=== PATIENT | female | born 1945 | race Caucasian/White ===

== ENCOUNTER 2017-10-16 17:28 | Inpatient (IN) | payer OTHER, MEDICAID, MEDICARE ==
[~2017-10-16] VITALS: Ht 149.9 cm; Wt 72.3 kg
[2017-10-16] VITALS (10 sets, daily range): BP systolic 97–139; BP diastolic 55–81; PULSE 104–150; RESP 18–34; TEMP 98.2–98.3; O2SAT 91–100
[~2017-10-16 17:28] MED LIST: COUM5TAB PO; LASI20TA PO; METO25 PO; PRIN10TA PO; [UNRECOGNIZED DRUG - CODE] PO
--- NOTE | 2017-10-16 17:43 | PD ---
HPI Chief Complaint: Shortness of breath Time Seen by Provider: 17:33 Travel History International Travel<30 days: No Contact w/Intl Traveler<30days: No Traveled to known affect area: No History of Present Illness HPI The patient is a 72-year-old female who presents to the emergency department via EMS for shortness of breath. Patient notes a progressive, increasing history of shortness of breath over the last 2 weeks. The patient does note a productive cough producing yellow to green sputum. The patient has a history of remote tobacco use, quit smoking 40 years ago. The patient does have a history of atrial fibrillation but denies any known history of congestive heart failure, pneumonia, COPD, or pulmonary embolism. The patient does note a previous history of bronchitis. The patient received Solu-Medrol 125 mg intravenously as well as nebulizers by EMS prior to arrival with mild improvement of her symptoms. Patient's oxygen saturation on room air prior to arrival was 89% according to EMS. The patient is not on home oxygen. Patient denies any fever. She denies any associated chest pain, nausea, vomiting, diarrhea, or abdominal pain. Symptoms are moderate. PFSH Past Medical History Arthritis: No Asthma: No Atrial Fibrillation: Yes Autoimmune Disease: No Blood Disorders: No Heart Rhythm Problems: Yes (AFIB) Cancer: No Cardiovascular Problems: Yes High Cholesterol: No Chemotherapy: No Chest Pain: No Congestive Heart Failure: No COPD: Yes Diminished Hearing: No Endocrine: No Gastrointestinal Disorders: Yes GERD: No Genitourinary: No Hepatitis: No Hiatal Hernia: No Hypertension: Yes Immune Disorder: No Musculoskeletal: No Neurologic: No Psychiatric: No Respiratory: Yes Immunizations Current: Yes Myocardial Infarction: No Radiation Therapy: No Sleep Apnea: No Ulcer: No Past Surgical History Abdominal Surgery: No AICD: No Cardiac Surgery: No Ear Surgery: No Endocrine Surgery: No Eye Surgery: No Genitourinary Surgery: No Gynecologic Surgery: Yes Hysterectomy: Yes Joint Replacement: No Oral Surgery: No Pacemaker: No Thoracic Surgery: No Other Surgery: Yes Social History Alcohol Use: No Tobacco Use: No Substance Use: No Allergies-Medications (Allergen,Severity, Reaction): Coded Allergies: Sulfa (Sulfonamide Antibiotics) (Unverified Allergy, Severe, ITCHING, 12/18) cephalexin (Unverified Allergy, Severe, RASH, 12/18/16) codeine (Unverified Allergy, Severe, N/V, 12/18/16) erythromycin base (Unverified Allergy, Severe, ITCHING, 12/18/16) latex (Unverified Allergy, Severe, Swelling, 12/18/16) penicillin G (Unverified Allergy, Severe, UNKNOWN, 12/18/16) diphenhydramine (Unverified Allergy, Intermediate, DEHYDRATION, 12/18/16) Reported Meds & Prescriptions Reported Meds & Active Scripts Active Reported Warfarin 5 Mg Tab 5 Mg PO DAILY Metoprolol Tartrate 75 Mg Tab 75 Mg PO BID Lisinopril 10 Mg Tab 10 Mg PO DAILY Lasix (Furosemide) 20 Mg Tab 20 Mg PO DAILY Diltiazem ER 24 HR 180 Mg Codi 180 Mg PO DAILY Review of Systems Except as stated in HPI: all other systems reviewed are Neg General / Constitutional: No: Fever, Chills HENT: No: Lightheadedness Cardiovascular: No: Chest Pain or Discomfort Respiratory: Positive: Cough, Shortness of Breath, Wheezing Gastrointestinal: No: Nausea, Vomiting, Abdominal Pain Musculoskeletal: No: Edema Neurologic: No: Dizziness Physical Exam Narrative GENERAL: Awake, alert, pleasant 72-year-old female who appears her stated age and is in mild respiratory distress. Slightly disheveled appearance. SKIN: Focused skin assessment warm/dry. HEAD: Atraumatic. Normocephalic. EYES: Pupils equal and round. No scleral icterus. No injection or drainage. ENT: No nasal bleeding or discharge. Mucous membranes pink and moist. NECK: Trachea midline. No JVD. CARDIOVASCULAR: Irregularly irregular, tachycardic with a heart rate in the 140s. RESPIRATORY: Mild tachypnea. Respiratory rate is 24. Prolonged expiratory phase with wheezing noted in the left lung guillory in the right base. Few scattered rhonchi noted. GASTROINTESTINAL: Abdomen soft, non-tender, nondistended. MUSCULOSKELETAL: No obvious deformities. No clubbing. No cyanosis. No edema. NEUROLOGICAL: Awake and alert. No obvious cranial nerve deficits. Motor grossly within normal limits. Normal speech. PSYCHIATRIC: Appropriate mood and affect; insight and judgment normal. Data Data Last Documented VS Vital Signs Date Time Temp Pulse Resp B/P (MAP) Pulse Ox O2 Delivery O2 Flow Rate FiO2 10/16/17 18:01 140 30 124/66 (85) 10/16/17 17:47 91 Nasal Cannula 3.00 10/16/17 17:43 98.3 Orders Orders Complete Blood Count With Diff (10/16/17 17:37) Comprehensive Metabolic Panel (10/16/17 17:37) B-Type Natriuretic Peptide (10/16/17 17:37) Magnesium (Mg) (10/16/17 17:37) Ckmb (Isoenzyme) Profile (10/16/17 17:37) Troponin I (10/16/17 17:37) Blood Culture (10/16/17 17:37) Iv Access Insert/Monitor (10/16/17 17:37) Electrocardiogram (10/16/17 17:37) Ecg Monitoring (10/16/17 17:37) Oximetry (10/16/17 17:37) Oxygen Administration (10/16/17 17:37) Chest, Pa & Lat (10/16/17 17:37) Sodium Chloride 0.9% Flush (Ns Flush) (10/16/17 17:45) Albuterol-Ipratropium Neb (Duoneb Neb) (10/16/17 17:45) Lactic Acid (10/16/17 17:37) Metoprolol Tartrate Inj (Lopressor Inj) (10/16/17 18:00) Metoprolol Tartrate Inj (Lopressor Inj) (10/16/17 18:15) Levofloxacin 750 Mg Premix Inj (Levaquin (10/16/17 19:00) Ns (Bolus) Inj (10/16/17 19:00) Metoprolol Tartrate Inj (Lopressor Inj) (10/16/17 19:00) Digoxin Inj (Lanoxin Inj) (10/16/17 19:00) Labs Laboratory Tests Test 10/16/17 17:38 10/16/17 17:52 White Blood Count 27.4 TH/MM3 Red Blood Count 5.62 MIL/MM3 Hemoglobin 17.2 GM/DL Hematocrit 50.0 % Mean Corpuscular Volume 89.1 FL Mean Corpuscular Hemoglobin 30.6 PG Mean Corpuscular Hemoglobin Concent 34.3 % Red Cell Distribution Width 13.8 % Platelet Count 233 TH/MM3 Mean Platelet Volume 9.2 FL Neutrophils (%) (Auto) 81.0 % Lymphocytes (%) (Auto) 9.8 % Monocytes (%) (Auto) 9.0 % Eosinophils (%) (Auto) 0.0 % Basophils (%) (Auto) 0.2 % Neutrophils # (Auto) 22.2 TH/MM3 Lymphocytes # (Auto) 2.7 TH/MM3 Monocytes # (Auto) 2.5 TH/MM3 Eosinophils # (Auto) 0.0 TH/MM3 Basophils # (Auto) 0.0 TH/MM3 CBC Comment AUTO DIFF Lactic Acid Level 1.6 mmol/L MDM Medical Decision Making Medical Screen Exam Complete: Yes Emergency Medical Condition: Yes Medical Record Reviewed: Yes Interpretation(s) EKG reveals atrial fibrillation with RVR. Nonspecific ST-T wave changes. Differential Diagnosis Differential diagnosis includes A. fib with RVR, bronchitis, pneumonia, pleural effusion, pulmonary edema, congestive heart failure, pulmonary embolism, COPD exacerbation, ACS. Narrative Course IV was established, labs are drawn and sent, and the patient was placed on cardiac telemetry monitoring and continuous pulse oximetry. EKG was ordered and interpreted. Chest x-ray was obtained. The patient was noted to be in atrial fibrillation with RVR, therefore, was administered Lopressor 5 mg intravenously. Lactic acid and blood cultures were sent to lab. The patient continued to be tachycardic despite Lopressor 5 mg intravenously, therefore, the patient was administered a second dose of Lopressor 5 mg intravenously. The patient's white count was elevated at 27, however, hemoglobin and hematocrit are also elevated, most likely secondary to hemoconcentration from dehydration. The patient continued to be in atrial fibrillation with RVR despite 2 doses of Lopressor, therefore, the patient was administered a third dose of Lopressor 5 mg and she is venously with normal saline 500 cc bolus and digoxin 0.5 mg intravenously. The patient was signed out to the oncoming physician at 7 PM. The patient will require admission. The patient was treated for possible community-acquired pneumonia with Levaquin as she is allergic to penicillin and cephalexin. Critical Care Narrative Aggregate critical care time was 40 minutes. Time to perform other separately billable procedures was not included in the critical care time. My time did not include minutes spent treating any other patients simultaneously or on activities that did not directly contribute to the patient's treatment. The services I provided to this patient were to treat and/or prevent clinically significant deterioration that could result in: Anoxia, hypoxia, arrhythmia, cardiomyopathy, ischemic heart disease, . I provided critical care services requiring my management, as noted below: Chart data review, documentation time, medication orders and management, vital sign assessments/reviewing monitor data, ordering and reviewing lab tests, ordering and interpreting/reviewing x-rays and diagnostic studies, care of the patient and discussion of the patient with the admitting physicians. Diagnosis Primary Impression: Atrial fibrillation with RVR Admitting Information Admitting Physician Requests: Admit Condition: Stable Clay King MD Oct 16, 2017 17:43
[2017-10-16] MEDS ORDERED: SODIUM CHLORIDE 0.9% FLUSH 10 ML FLUSH IVF PRN (17:45)
[2017-10-16] MEDS ORDERED: LISI10TA3 PO (18:00)
[2017-10-16] MEDS ORDERED: METOPROLOL TARTRATE 5 MG/5 ML VIAL IV PUSH ONE ×3 (18:00→19:00)
[2017-10-16] MEDS ORDERED: WARF-23 PO (18:00)
[2017-10-16] MEDS ORDERED: METO-426 PO (18:00)
[2017-10-16] MEDS ORDERED: FURO1TAB62 PO (18:00)
[2017-10-16] MEDS ORDERED: DILT0.05 PO (18:00)
[2017-10-16 18:30] LABS: AUTOMATED NEUTROPHIL # 22.2 TH/MM3 (1.8-7.7); BASOPHIL % 0.2 % (0.0-2.0); HEMOGLOBIN 17.2 GM/DL (11.6-15.3); LYMPH % 9.8 % (9.0-44.0); LYMPHOCYTE # 2.7 TH/MM3 (1.0-4.8); MEAN CELL VOLUME 89.1 FL (80.0-100.0); MEAN CORPUSCULAR HEMOGLOBIN 30.6 PG (27.0-34.0); MEAN CORPUSCULAR HGB CONC 34.3 % (32.0-36.0); MEAN PLATELET VOLUME 9.2 FL (7.0-11.0); MONOCYTE # 2.5 TH/MM3 (0-0.9); PLATELET COUNT 233 TH/MM3 (150-450); RED BLOOD COUNT 5.62 MIL/MM3 (4.00-5.30); RED CELL DISTRIBUTION WIDTH 13.8 % (11.6-17.2); WHITE BLOOD COUNT 27.4 TH/MM3 (4.0-11.0)
--- NOTE | 2017-10-16 18:51 | RADRPT ---
EXAM DATE: 10/16/2017 6:35 PM EDT AGE/SEX: 72 years / Female INDICATIONS: Cough, congestion, and shortness of breath. CLINICAL DATA: This is the patient's initial encounter. Patient reports that signs and symptoms have been present for 2 weeks and indicates a pain score of 0/10. MEDICAL/SURGICAL HISTORY: None. None. COMPARISON: No prior exams available for comparison. FINDINGS: Mild bilateral perihilar and basilar interstitial infiltrates are present. There appears to be slight blunting of the posterior sulcus which may indicate minimal effusion. Cardiac contours are satisfact ory. Thoracic skeleton is grossly intact. CONCLUSION: Bilateral infiltrates. Electronically signed by: Rafa Jordan MD 10/16/2017 6:50 PM EDT
[2017-10-16 18:52] LABS: ALBUMIN 3.5 GM/DL (3.4-5.0); AST (GOT) 25 U/L (15-37); BICARBONATE 25.4 MEQ/L (21.0-32.0); BLOOD UREA NITROGEN 13 MG/DL (7-18); CALCIUM 9.2 MG/DL (8.5-10.1); CHLORIDE 99 MEQ/L (98-107); CREATININE 0.73 MG/DL (0.50-1.00); GLOMERULAR FILTRATION RATE 79 ML/MIN (>89); GLUCOSE,RANDOM 123 MG/DL (74-106); SODIUM (NA) 136 MEQ/L (136-145)
[2017-10-16 18:53] LABS: ALT (GPT) 27 U/L (10-53)
[2017-10-16 18:57] LABS: ALKALINE PHOSPHATASE 76 U/L (45-117); TOTAL BILIRUBIN ADULT 0.7 MG/DL (0.2-1.0); TOTAL PROTEIN 7.8 GM/DL (6.4-8.2); TROPONIN I LESS THAN 0.02 NG/ML (0.02-0.05)
[2017-10-16] MEDS ORDERED: LEVOFLOXACIN 750 MG PREMIX INJ 150 ML IV ONE (19:00)
[2017-10-16] MEDS ORDERED: SODIUM CHLORID 0.9% 500 ML INJ 500 ML IV ONE ×2 (19:00→19:45)
[2017-10-16] MEDS ORDERED: DIGOXIN 0.5 MG/2 ML VIAL IV PUSH ONE (19:00)
[2017-10-16] MEDS ORDERED: ASPIRIN 81 MG CHEW TAB CHEW ONE (19:00)
--- NOTE | 2017-10-16 19:11 | PD ---
Physical Exam Date Seen by Provider: Oct 16, 2017 Time Seen by Provider: 19:09 Narrative Accepted in transfer of care from Dr. King Data Data Last Documented VS Vital Signs Date Time Temp Pulse Resp B/P (MAP) Pulse Ox O2 Delivery O2 Flow Rate FiO2 10/16/17 19:23 137 22 123/55 (77) 92 Nasal Cannula 3.00 10/16/17 17:43 98.3 Orders Orders Complete Blood Count With Diff (10/16/17 17:37) Comprehensive Metabolic Panel (10/16/17 17:37) B-Type Natriuretic Peptide (10/16/17 17:37) Magnesium (Mg) (10/16/17 17:37) Ckmb (Isoenzyme) Profile (10/16/17 17:37) Troponin I (10/16/17 17:37) Blood Culture (10/16/17 17:37) Iv Access Insert/Monitor (10/16/17 17:37) Electrocardiogram (10/16/17 17:37) Ecg Monitoring (10/16/17 17:37) Oximetry (10/16/17 17:37) Oxygen Administration (10/16/17 17:37) Chest, Pa & Lat (10/16/17 17:37) Sodium Chloride 0.9% Flush (Ns Flush) (10/16/17 17:45) Albuterol-Ipratropium Neb (Duoneb Neb) (10/16/17 17:45) Lactic Acid (10/16/17 17:37) Metoprolol Tartrate Inj (Lopressor Inj) (10/16/17 18:00) Metoprolol Tartrate Inj (Lopressor Inj) (10/16/17 18:15) Levofloxacin 750 Mg Premix Inj (Levaquin (10/16/17 19:00) Sodium Chlorid 0.9% 500 Ml Inj (Ns 500 M (10/16/17 19:00) Metoprolol Tartrate Inj (Lopressor Inj) (10/16/17 19:00) Digoxin Inj (Lanoxin Inj) (10/16/17 19:00) Aspirin Chew (Aspirin Chew) (10/16/17 19:00) Sodium Chlorid 0.9% 500 Ml Inj (Ns 500 M (10/16/17 19:45) Admit Order (Ed Use Only) (10/16/17 ) [employer] / Telemetry [id number] (10/16/17 19:40) Activity Bed Rest (10/16/17 19:40) Notify Dr: Other (10/16/17 19:40) Labs Laboratory Tests Test 10/16/17 17:38 10/16/17 17:52 White Blood Count 27.4 TH/MM3 Red Blood Count 5.62 MIL/MM3 Hemoglobin 17.2 GM/DL Hematocrit 50.0 % Mean Corpuscular Volume 89.1 FL Mean Corpuscular Hemoglobin 30.6 PG Mean Corpuscular Hemoglobin Concent 34.3 % Red Cell Distribution Width 13.8 % Platelet Count 233 TH/MM3 Mean Platelet Volume 9.2 FL Neutrophils (%) (Auto) 81.0 % Lymphocytes (%) (Auto) 9.8 % Monocytes (%) (Auto) 9.0 % Eosinophils (%) (Auto) 0.0 % Basophils (%) (Auto) 0.2 % Neutrophils # (Auto) 22.2 TH/MM3 Lymphocytes # (Auto) 2.7 TH/MM3 Monocytes # (Auto) 2.5 TH/MM3 Eosinophils # (Auto) 0.0 TH/MM3 Basophils # (Auto) 0.0 TH/MM3 CBC Comment AUTO DIFF Differential Comment AUTO DIFF CONFIRMED Platelet Estimate NORMAL Platelet Morphology Comment NORMAL Red Cell Morphology Comment NORMAL Blood Urea Nitrogen 13 MG/DL Creatinine 0.73 MG/DL Random Glucose 123 MG/DL Total Protein 7.8 GM/DL Albumin 3.5 GM/DL Calcium Level 9.2 MG/DL Magnesium Level 2.0 MG/DL Alkaline Phosphatase 76 U/L Aspartate Amino Transf (AST/SGOT) 25 U/L Alanine Aminotransferase (ALT/SGPT) 27 U/L Total Bilirubin 0.7 MG/DL Sodium Level 136 MEQ/L Potassium Level 3.6 MEQ/L Chloride Level 99 MEQ/L Carbon Dioxide Level 25.4 MEQ/L Anion Gap 12 MEQ/L Estimat Glomerular Filtration Rate 79 ML/MIN Total Creatine Kinase 42 U/L Troponin I LESS THAN 0.02 NG/ML B-Type Natriuretic Peptide 94 PG/ML Lactic Acid Level 1.6 mmol/L [facility] Medical Record Reviewed: Yes Supervised Visit with ABBIE: No Interpretation(s) EKG: Atrial fibrillation with rapid ventricular response rate [address] elevation Last Impressions Chest X-Ray 10/16/17 1737 Signed Impressions: CONCLUSION: Bilateral infiltrates. CBC & BMP Diagram 10/16/17 17:38 Total Protein 7.8, Albumin 3.5, Calcium Level 9.2, Magnesium Level 2.0, Alkaline Phosphatase 76, Aspartate Amino Transf (AST/SGOT) 25, Alanine Aminotransferase (ALT/SGPT) 27, Total Bilirubin 0.7 Vital Signs Date Time Temp Pulse Resp B/P (MAP) Pulse Ox O2 Delivery O2 Flow Rate FiO2 10/16/17 18:01 140 30 124/66 (85) 10/16/17 17:47 151 91 Nasal Cannula 3.00 10/16/17 17:47 92 Nasal Cannula 3.00 10/16/17 17:47 91 3.00 10/16/17 17:43 98.3 150 34 139/81 (100) 91 CK: 42, not elevated; troponin I: Less than 002, not elevated; BNP 94, not elevated Differential Diagnosis Accepted in transfer of care from Dr. King; please refer to his dictation Narrative Course Accepted in transfer of care from Dr. King; follow up on labs and admission Labs resulted including cardiac enzymes found to be in normal range and BNP is not elevated; leukocytosis with hemoconcentration elevated hemoglobin of 17.1 EKG is A. fib with RVR; chest x-ray shows bilateral pulmonary infiltrates; patient is already received updraft treatments metoprolol Solu-Medrol Levaquin and a 500 cc bolus of normal saline; patient's case discussed with on-call medicine request additional fluid bolus and will determine if they will start esmolol or amiodarone infusion for management of her A. fib with RVR. Patient is aware of plan to admit and is agreeable with this plan. Sepsis Criteria SIRS Criteria (2 or more): Heart rate over 90, WBC > 44549, < 4000 or > 10% bands Sepsis Criteria (SIRS+source): Infect source susp/known (lung) Physician Communication Physician Communication call placed to [facility] --discussed with Dr Hernandez --icu Diagnosis Primary Impression: Atrial fibrillation with RVR Additional Impressions: Pneumonia Sepsis Admitting Information Admitting Physician Requests: Admit Condition: Stable Gabriela Ortega MD Oct 16, 2017 19:11
[2017-10-16] MEDS ORDERED: PRAD150C PO (19:27)
[2017-10-16] MEDS: RESP: ALBUTEROL 2.5 MG/IPRATROPIUM 0.5 MG NEB (SCH) INH ×2 (19:51→21:06)
[2017-10-16] MEDS ORDERED: RESP: ALBUTEROL 2.5 MG/IPRATROPIUM 0.5 MG NEB (PRN) INH (20:45)
[2017-10-16] MEDS ORDERED: SODIUM CHLORIDE 0.9% FLUSH 10 ML FLUSH IV FLUSH PRN (20:45)
[2017-10-16] MEDS ORDERED: ACETAMINOPHEN 325 MG TAB PO PRN (20:45)
--- NOTE | 2017-10-16 20:46 | HHI.HP ---
[facility] Service [facility] Primary Care Physician Unknown Admission Diagnosis AFRVR; pneumonia w/ hypoxia; sepsis Diagnoses: Travel History International Travel<30 Days: No Contact w/Intl Traveler <30 Da: No Traveled to Known Affected Are: No History of Present Illness 72-year-old female with past medical history significant for atrial fibrillation , anticoagulated on Pradaxa, presents the emergency department for evaluation of shortness of breath. The patient reports a 2 week history of progressively worsening shortness of breath. She also endorses a week of heart palpitations. She states she has had a cough productive of yellow sputum. Denies any chest pain but endorses fevers/chills. The patient reports that she was recently out of her metoprolol for approximately 1 week, finally getting it refilled 2 days ago. No abdominal pain. No nausea/vomiting/diarrhea. No lateralizing signs/ symptoms. Review of Systems Except as stated in HPI: all other systems reviewed are Neg Past Family Social History Past Medical History Atrial fibrillation, anticoagulated on Pradaxa Hypertension Past Surgical History Left leg surgery Appendectomy Cholecystectomy Hysterectomy Reported Medications Reported Meds & Active Scripts Active Reported Pradaxa (Dabigatran) 150 Mg Cap 150 Mg PO BID Metoprolol Tartrate 75 Mg Tab 75 Mg PO BID Lisinopril 10 Mg Tab 10 Mg PO DAILY Diltiazem ER 24 HR 180 Mg Codi 180 Mg PO DAILY Allergies: Coded Allergies: Sulfa (Sulfonamide Antibiotics) (Unverified Allergy, Severe, ITCHING, 12/18) cephalexin (Unverified Allergy, Severe, RASH, 12/18/16) codeine (Unverified Allergy, Severe, N/V, 12/18/16) erythromycin base (Unverified Allergy, Severe, ITCHING, 12/18/16) latex (Unverified Allergy, Severe, Swelling, 12/18/16) penicillin G (Unverified Allergy, Severe, UNKNOWN, 12/18/16) diphenhydramine (Unverified Allergy, Intermediate, DEHYDRATION, 12/18/16) Family History Negative for CAD/DM Social History Remote history of tobacco abuse. Negative for alcohol and illicit drugs. Physical Exam Vital Signs Vital Signs Date Time Temp Pulse Resp B/P (MAP) Pulse Ox O2 Delivery O2 Flow Rate FiO2 10/16/17 19:48 98 Nasal Cannula 3.00 10/16/17 19:42 118 10/16/17 19:23 137 22 123/55 (77) 92 Nasal Cannula 3.00 10/16/17 18:01 140 30 124/66 (85) 10/16/17 17:47 151 91 Nasal Cannula 3.00 10/16/17 17:47 92 Nasal Cannula 3.00 10/16/17 17:47 91 3.00 10/16/17 17:43 98.3 150 34 139/81 (100) 91 Physical Exam GENERAL: female sitting up in bed SKIN: No rashes, ecchymoses or lesions. Cool and dry. HEAD: Atraumatic. Normocephalic. No temporal or scalp tenderness. EYES: Pupils equal round and reactive. Extraocular motions intact. No scleral icterus. No injection or drainage. ENT: Nose without bleeding, purulent drainage or septal hematoma. Throat without erythema, tonsillar hypertrophy or exudate. Uvula midline. Airway patent. NECK: Trachea midline. No JVD or lymphadenopathy. Supple, nontender, no meningeal signs. CARDIOVASCULAR: Tachycardic. Irregularly irregular rhythm without murmurs, gallops, or rubs. RESPIRATORY: Clear to auscultation. Breath sounds equal bilaterally. No wheezes , rales, or rhonchi. GASTROINTESTINAL: Abdomen soft, non-tender, nondistended. No hepato-splenomegaly , or palpable masses. No guarding. MUSCULOSKELETAL: Extremities without clubbing, cyanosis, or edema. No joint tenderness, effusion, or edema noted. No calf tenderness. NEUROLOGICAL: Awake and alert. Cranial nerves II through XII intact. Motor and sensory grossly within normal limits. Normal speech. Laboratory Laboratory Tests Test 10/16/17 17:38 10/16/17 17:52 White Blood Count 27.4 Red Blood Count 5.62 Hemoglobin 17.2 Hematocrit 50.0 Mean Corpuscular Volume 89.1 Mean Corpuscular Hemoglobin 30.6 Mean Corpuscular Hemoglobin Concent 34.3 Red Cell Distribution Width 13.8 Platelet Count 233 Mean Platelet Volume 9.2 Neutrophils (%) (Auto) 81.0 Lymphocytes (%) (Auto) 9.8 Monocytes (%) (Auto) 9.0 Eosinophils (%) (Auto) 0.0 Basophils (%) (Auto) 0.2 Neutrophils # (Auto) 22.2 Lymphocytes # (Auto) 2.7 Monocytes # (Auto) 2.5 Eosinophils # (Auto) 0.0 Basophils # (Auto) 0.0 CBC Comment AUTO DIFF Differential Comment AUTO DIFF CONFIRMED Platelet Estimate NORMAL Platelet Morphology Comment NORMAL Red Cell Morphology Comment NORMAL Blood Urea Nitrogen 13 Creatinine 0.73 Random Glucose 123 Total Protein 7.8 Albumin 3.5 Calcium Level 9.2 Magnesium Level 2.0 Alkaline Phosphatase 76 Aspartate Amino Transf (AST/SGOT) 25 Alanine Aminotransferase (ALT/SGPT) 27 Total Bilirubin 0.7 Sodium Level 136 Potassium Level 3.6 Chloride Level 99 Carbon Dioxide Level 25.4 Anion Gap 12 Estimat Glomerular Filtration Rate 79 Total Creatine Kinase 42 Troponin I LESS THAN 0.02 B-Type Natriuretic Peptide 94 Lactic Acid Level 1.6 Date/Time Source Procedure Growth Status 10/16/17 17:50 Blood Peripheral Aerobic Blood Culture Pending Received 10/16/17 17:50 Blood Peripheral Anaerobic Blood Culture Pending Received Result Diagram: 10/16/17 1738 10/16/17 1738 Caprini VTE Risk Assessment Caprini VTE Risk Assessment: Mod/High Risk (score >= 2) Caprini Risk Assessment Model Point Value = 1 Point Value = 2 Point Value = 3 Point Value = 5 Age 41-60 Minor surgery BMI > 25 kg/m2 Swollen legs Varicose veins or History of unexplained or recurrent spontaneous Oral contraceptives or hormone replacement Sepsis (< 1 month) Serious lung disease, including pneumonia (< 1 month) Abnormal pulmonary function Acute myocardial infarction Congestive heart failure (< 1 month) History of inflammatory bowel disease Medical patient at bed rest Age 61-74 Arthroscopic surgery Major open surgery (> 45 min) Laparoscopic surgery (> 45 min) Malignancy Confined to bed (> 72 hours) Immobilizing plaster cast Central venous access Age >= 75 History of VTE Family history of VTE Factor V Leiden Prothrombin [id number] Lupus anticoagulant Anticardiolipin antibodies Elevated serum homocysteine Heparin-induced thrombocytopenia Other congenital or acquired thrombophilia Stroke (< 1 month) Elective arthroplasty Hip, pelvis, or leg fracture Acute spinal cord injury (< 1 month) Prophylaxis Regimen Total Risk Factor Score Risk Level Prophylaxis Regimen 0-1 Low Early ambulation 2 Moderate Order ONE of the following: *Sequential Compression Device (SCD) *Heparin 5000 units SQ BID 3-4 Higher Order ONE of the following medications: *Heparin 5000 units SQ TID *Enoxaparin/Lovenox 40 mg SQ daily (WT < 150 kg, CrCl > 30 mL/min) *Enoxaparin/Lovenox 30 mg SQ daily (WT < 150 kg, CrCl > 10-29 mL/min) *Enoxaparin/Lovenox 30 mg SQ BID (WT < 150 kg, CrCl > 30 mL/min) AND/OR *Sequential Compression Device (SCD) 5 or more Highest Order ONE of the following medications: *Heparin 5000 units SQ TID (Preferred with Epidurals) *Enoxaparin/Lovenox 40 mg SQ daily (WT < 150 kg, CrCl > 30 mL/min) *Enoxaparin/Lovenox 30 mg SQ daily (WT < 150 kg, CrCl > 10-29 mL/min) *Enoxaparin/Lovenox 30 mg SQ BID (WT < 150 kg, CrCl > 30 mL/min) AND *Sequential Compression Device (SCD) Assessment and Plan Assessment and Plan Assessment/plan: 1. Atrial fibrillation with rapid ventricular response EKG significant for A. fib with RVR, no ST segment elevations, personally reviewed Patient with history of atrial fibrillation Remains tachycardic despite IV metoprolol Esmolol drip Wean as tolerated Continue home medications including anticoagulation with Pradaxa 2. Pneumonia Chest x-ray significant for bilateral infiltrates, personally reviewed Patient with leukocytosis although is also hemoconcentrated Levaquin 3. Hypertension Continue home lisinopril FEN Heart healthy diet Electrolytes: Monitor and replete as needed Pradaxa NS at 100 cc/hour Physician Certification 2 Midnight Certification Type: Admission for Inpatient Services Order for Inpatient Services The services are ordered in accordance with Medicare regulations or non- Medicare payer requirements, as applicable. In the case of services not specified as inpatient-only, they are appropriately provided as inpatient services in accordance with the 2-midnight benchmark. Estimated LOS (days): 2 2 days is the estimated time the patient will need to remain in the hospital, assuming treatment plan goals are met and no additional complications. Post-Hospital Plan: Not yet determined Lisa Hernandez MD Oct 16, 2017 20:46
[2017-10-16] MEDS ORDERED: AMIODARONE INJ 450 MG in DEXTROSE 5% IN WATE(EXCEL) INJ 241 ML IV PRN ×2 (20:51)
[2017-10-16] MEDS: ESMOLOL DRIP INJ PREMIX 250 ML IV PRN (21:19)
[2017-10-16] MEDS: SODIUM CHLOR 0.9% 1000 ML INJ 1,000 ML IV SCH (21:19)
[2017-10-16] MEDS: SODIUM CHLORIDE 0.9% FLUSH 10 ML FLUSH IV FLUSH SCH (21:19)
[2017-10-16] MEDS: DABIGATRAN ETEXILATE 150 MG CAP PO SCH (21:51)
[2017-10-16] MEDS ORDERED: CHLORHEXIDINE GLUCONATE 2 % 1 PACK (2 CLOTHS)(extra cloths) TOPICAL PRN (23:15)
[2017-10-17] VITALS (25 sets, daily range): BP systolic 85–103; BP diastolic 51–63; PULSE 86–145; RESP 19–30; TEMP 97.4–98.7; O2SAT 96–100
[2017-10-17] MEDS: ESMOLOL DRIP INJ PREMIX 250 ML IV PRN (02:33)
[2017-10-17] MEDS: CHLORHEXIDINE GLUCONATE 2 % 1 PACK (2 CLOTHS)(taper/protocol) TOPICAL SCH (04:00)
[2017-10-17] MEDS: RESP: ALBUTEROL 2.5 MG/IPRATROPIUM 0.5 MG NEB (SCH) INH ×4 (04:03→21:30)
[2017-10-17 04:05] LABS: AUTOMATED NEUTROPHIL # 21.6 TH/MM3 (1.8-7.7); BASOPHIL % 0.1 % (0.0-2.0); HEMATOCRIT 41.9 % (35.0-46.0); LYMPHOCYTE # 1.2 TH/MM3 (1.0-4.8); MEAN CELL VOLUME 90.1 FL (80.0-100.0); MEAN CORPUSCULAR HEMOGLOBIN 30.1 PG (27.0-34.0); MEAN CORPUSCULAR HGB CONC 33.4 % (32.0-36.0); MONO % 4.6 % (0.0-8.0); MONOCYTE # 1.1 TH/MM3 (0-0.9); NEUT % 90.3 % (16.0-70.0); PLATELET COUNT 188 TH/MM3 (150-450); RED BLOOD COUNT 4.65 MIL/MM3 (4.00-5.30); RED CELL DISTRIBUTION WIDTH 13.1 % (11.6-17.2); WHITE BLOOD COUNT 23.9 TH/MM3 (4.0-11.0)
[2017-10-17 04:27] LABS: BICARBONATE 23.8 MEQ/L (21.0-32.0); CALCIUM 8.4 MG/DL (8.5-10.1); CREATININE 0.71 MG/DL (0.50-1.00)
[2017-10-17] MEDS: SODIUM CHLOR 0.9% 1000 ML INJ 1,000 ML IV SCH ×2 (04:35→14:52)
[2017-10-17] MEDS: DABIGATRAN ETEXILATE 150 MG CAP PO SCH ×2 (08:41→19:54)
[2017-10-17] MEDS: DILTIAZEM-CD 180 MG CAP ER PO SCH (08:41)
[2017-10-17] MEDS: SODIUM CHLORIDE 0.9% FLUSH 10 ML FLUSH IV FLUSH SCH ×2 (08:41→19:53)
[2017-10-17] MEDS: LISINOPRIL 10 MG TAB PO SCH (09:00)
[2017-10-17] MEDS: METOPROLOL TARTRATE 25 MG TAB PO SCH ×2 (09:00→19:53)
--- NOTE | 2017-10-17 10:49 | HHI.PR ---
Subjective Remarks Some signs of improvement the patient's tachycardia is not yet resolved. She has no complaints of chest pain. Occasional complaints of shortness of breath. No dizziness. Objective Vital Signs Date Time Temp Pulse Resp B/P (MAP) Pulse Ox O2 Delivery O2 Flow Rate FiO2 10/17/17 10:41 128 104/54 10/17/17 10:00 113 10/17/17 09:16 128 104/54 10/17/17 09:00 126 10/17/17 08:31 99 Nasal Cannula 2.00 10/17/17 08:30 99 Nasal Cannula 4.00 10/17/17 08:00 91 10/17/17 07:00 98.6 96 25 96/62 (73) 96 10/17/17 07:00 96 10/17/17 06:00 88 10/17/17 04:00 94 10/17/17 03:00 98.7 93 19 101/63 (76) 100 10/17/17 02:33 97 96/59 10/17/17 02:10 97 95/61 10/17/17 02:00 90 10/17/17 00:00 108 10/16/17 23:37 98.2 112 20 97/65 (76) 100 10/16/17 23:00 104 10/16/17 22:44 10/16/17 21:42 130 18 122/75 (91) 97 Nasal Cannula 3.00 10/16/17 21:19 127 112/53 10/16/17 20:52 127 20 107/60 (76) 97 Nasal Cannula 3.00 10/16/17 19:48 98 Nasal Cannula 3.00 10/16/17 19:42 118 10/16/17 19:23 137 22 123/55 (77) 92 Nasal Cannula 3.00 10/16/17 18:01 140 30 124/66 (85) 10/16/17 17:47 151 91 Nasal Cannula 3.00 10/16/17 17:47 92 Nasal Cannula 3.00 10/16/17 17:47 91 3.00 10/16/17 17:43 98.3 150 34 139/81 (100) 91 I/O 10/16/17 10/16/17 10/16/17 10/17/17 10/17/17 10/17/17 07:00 15:00 23:00 07:00 15:00 23:00 Intake Total 1270 ml 1500 ml Output Total 400 ml Balance 1270 ml 1100 ml Intake Oral 120 ml 250 ml IV Total 1150 ml 1250 ml Output Urine Total 400 ml # Bowel Movements 0 Result Diagram: 10/17/171 10/17/17 023 Objective Remarks GENERAL: NAD, A&Ox3 HEAD: Normocephalic. NECK: Supple, trachea midline. No lymphadenopathy. EYES: No scleral icterus. No injection or drainage. CARDIOVASCULAR: Irregularly irregular with tachycardia without murmurs, gallops , or rubs. RESPIRATORY: Breath sounds equal bilaterally. No accessory muscle use. GASTROINTESTINAL: Abdomen soft, non-tender, nondistended. MUSCULOSKELETAL: No cyanosis, or edema. SKIN: Warm and dry. NEURO: No focal neurological deficitis. A/P Problem List: (1) Atrial fibrillation with RVR ICD Code: I48.91 - Unspecified atrial fibrillation Status: Acute (2) Pneumonia ICD Code: J18.9 - Pneumonia, unspecified organism Status: Acute (3) Sepsis ICD Code: A41.9 - Sepsis, unspecified organism Status: Acute Assessment and Plan 72-year-old female admitted secondary to A. fib RVR with pneumonia and sepsis Atrial fibrillation with rapid ventricular response History of atrial fibrillation Continue esmolol drip Continue Pradaxa Treat pneumonia as this is likely an etiology for the onset Community-acquired pneumonia Continue Levaquin Follow clinically Hypertension Continue baseline treatment Follow blood pressures Adjust treatments as needed Continue lisinopril DVT prophylaxis Pradaxa Pepito Alvarado MD Oct 17, 2017 10:49
--- NOTE | 2017-10-17 17:13 | MB ---
cc: Rasta Cai DO DATE: 10/17/2017 REASON FOR CONSULTATION: Atrial fibrillation with rapid ventricular response. HISTORY OF PRESENT ILLNESS: Karen Cavazos is a pleasant 72-year-old female who presented to [facility] Emergency Room on 10/16/2017 due to shortness of breath. She states that she has been getting significantly short of breath over the past 2 weeks. Over the past week, she has noticed heart palpitations with her heart racing and somewhat irregular. She denies any chest pains. She has had productive sputum, mostly yellow to brown in nature. She states that she has had maybe some subjective fevers, although she is unsure. During the episode, she had run out of metoprolol for a week and finally got it refilled about 2 days ago. She was admitted to the hospital with pneumonia and was found to have atrial fibrillation with rapid ventricular response. Since that time, she was started on an esmolol drip, but her blood pressure has been somewhat on the low side and so esmolol drip has been stopped and her metoprolol has been held. She has received her Cardizem this morning. PAST MEDICAL HISTORY: 1. Atrial fibrillation, anticoagulated on Pradaxa. 2. Hypertension. PAST SURGICAL HISTORY: 1. Left leg surgery. 2. Appendectomy. 3. Cholecystectomy. 4. Hysterectomy. ALLERGIES: 1. SULFA. 2. CEPHALEXIN. 3. CODEINE. 4. DIPHENHYDRAMINE. 5. ERYTHROMYCIN BASE. 6. LATEX. 7. PENICILLIN. MEDICATIONS: 1. Pradaxa 150 mg b.i.d. 2. Metoprolol tartrate 75 mg b.i.d. 3. Cardizem 180 mg daily. 4. Lisinopril 10 mg daily. FAMILY HISTORY: Denies premature coronary artery disease or sudden cardiac within the family. SOCIAL HISTORY: She does have a history of tobacco abuse, but quit 40 years ago. Denies alcohol or drug abuse. REVIEW OF SYSTEMS: Fourteen systems were reviewed including osteopathic. Pertinent positives and negatives above, otherwise negative. PHYSICAL EXAMINATION: VITAL SIGNS: Temperature 97.5, heart rate 88, blood pressure 85/51 with a repeat of 90/60, respirations 25, pulse oximetry 99 percent on 2 liters. GENERAL: The patient appears well, in no acute distress, alert, awake and oriented x 3. HEENT: Extraocular muscles intact. Mucous membranes moist. NECK: Supple. No JVD at 45 degrees. No carotid bruits heard bilaterally. Carotid upstroke is brisk in nature. HEART: Irregularly irregular. Positive first and second heart sounds with a I/ holosystolic murmur noted at the apex. LUNGS: Have bilateral rhonchi scattered throughout. ABDOMEN: Soft, nontender, nondistended. No organomegaly noted. EXTREMITIES: Show trace edema bilaterally. NEUROLOGIC: No focal deficits. SKIN: Warm, dry and intact. OSTEOPATHIC: No kyphoscoliosis, lordosis or paraspinal tender points. LABORATORY DATA: Hemoglobin 14.0, hematocrit 41.9, platelets 188. Potassium 3.6, BUN 13, creatinine 0.71. Lactic acid 1.6. Troponin less than 0.02. BNP 94. Electrocardiogram (10/16/2017 at 1749): Atrial fibrillation with rapid ventricular response, incomplete right bundle branch block, nonspecific ST-T wave changes. IMPRESSIONS: 1. Community-acquired pneumonia. 2. Atrial fibrillation with rapid ventricular response. 3. Hypertension. 4. Remote tobacco history. 5. Mild hypotension. RECOMMENDATIONS: 1. Ms. Cavazos presented with shortness of breath and pneumonia-like symptoms. This will be treated by the primary team. 2. She also presented with atrial fibrillation with rapid ventricular response, and this is most likely potentiated by her pneumonia, as well as being out of her metoprolol tartrate. 3. Her heart rate is currently controlled and with her low blood pressure, I am unable to add or increase any of her medications. For now, we will continue to follow her blood pressure and if unable to give further medications and her heart rate increases, I would place her back on the esmolol drip or she may need digoxin. 4. We will check a 2-D echo to look at her overall left ventricular function, cardiac structure and possible valvulopathies. 5. She will continue on Pradaxa for anticoagulation due to her CHADS-VASc score of 3. 6. Further recommendations will be made based on the hospital course. Thank you for allowing me to see Karen Cavazos. If there are any questions, please do not hesitate to call. DO JIMBO CalderonP/NICOLETTE , 04:46 PM , 05:11 PM
--- NOTE | 2017-10-17 19:16 | EKG ---
Date Performed: 10/16/2017 Time Performed: 17:49:42 PTAGE: 72 years EKG: ATRIAL FIBRILLATION WITH RAPID VENTRICULAR RESPONSE INDETERMINATE AXIS POSSIBLE RIGHT VENTR ICULAR CONDUCTION DELAY NONSPECIFIC ST & T-WAVE ABNORMALITY ABNORMAL RHYTHM ECG when compared to prio r EKG, patient is now in atrial fibrillation with rapid ventricular rate. PREVIOUS TRACING :05/01/2009 @17.04 DOCTOR: Nessa Woo Interpretating Date/Time 10/17/2017 19:14:52
[2017-10-17] MEDS: LEVOFLOXACIN 750 MG PREMIX INJ 150 ML IV SCH (19:52)
[2017-10-17] MEDS ORDERED: METOPROLOL TARTRATE 5 MG/5 ML VIAL IV PUSH ONE (23:30)
[2017-10-18] VITALS (34 sets, daily range): BP systolic 97–129; BP diastolic 60–85; PULSE 72–116; RESP 16–28; TEMP 97.7–98.7; O2SAT 95–99
[2017-10-18] MEDS: SODIUM CHLOR 0.9% 1000 ML INJ 1,000 ML IV SCH ×2 (00:27→22:43)
[2017-10-18] MEDS: RESP: ALBUTEROL 2.5 MG/IPRATROPIUM 0.5 MG NEB (SCH) INH ×3 (03:42→19:57)
[2017-10-18] MEDS: CHLORHEXIDINE GLUCONATE 2 % 1 PACK (2 CLOTHS)(taper/protocol) TOPICAL SCH (04:00)
[2017-10-18] MEDS: METOPROLOL TARTRATE 25 MG TAB PO SCH ×2 (07:03→19:41)
[2017-10-18] MEDS: DABIGATRAN ETEXILATE 150 MG CAP PO SCH ×2 (09:00→21:00)
[2017-10-18] MEDS: DILTIAZEM-CD 180 MG CAP ER PO SCH (09:59)
[2017-10-18] MEDS: SODIUM CHLORIDE 0.9% FLUSH 10 ML FLUSH IV FLUSH SCH ×2 (09:59→19:41)
[2017-10-18] MEDS: LISINOPRIL 10 MG TAB PO SCH (09:59)
--- NOTE | 2017-10-18 10:16 | HHI.PR ---
Subjective Remarks Rate control is improving. Patient has shown stability and would be stable for transfer out of ICU today. No new complaints from the patient. She says that her shortness of breath is improving. Objective Vital Signs Date Time Temp Pulse Resp B/P (MAP) Pulse Ox O2 Delivery O2 Flow Rate FiO2 10/18/17 09:31 98 Nasal Cannula 2.00 10/18/17 07:00 97.7 91 16 129/60 (83) 99 10/18/17 07:00 91 10/18/17 06:00 91 10/18/17 06:00 91 10/18/17 05:30 90 10/18/17 05:30 90 10/18/17 05:00 98 10/18/17 05:00 98 10/18/17 04:30 94 10/18/17 04:00 92 10/18/17 04:00 92 10/18/17 03:30 81 10/18/17 03:00 98.7 82 19 97/62 (74) 99 10/18/17 03:00 82 10/18/17 03:00 82 10/18/17 02:31 78 10/18/17 02:01 86 10/18/17 02:00 84 10/18/17 01:30 90 10/18/17 01:07 88 10/18/17 01:01 91 10/18/17 01:00 92 10/18/17 00:30 93 10/18/17 00:00 92 10/17/17 23:30 123 10/17/17 23:00 130 10/17/17 23:00 130 10/17/17 23:00 98.5 130 24 103/56 (72) 97 10/17/17 22:30 141 10/17/17 22:01 145 10/17/17 22:00 139 10/17/17 21:31 96 Nasal Cannula 2.00 10/17/17 20:00 110 10/17/17 19:00 98.0 110 25 101/54 (70) 98 10/17/17 18:00 113 10/17/17 16:00 86 10/17/17 15:00 88 10/17/17 15:00 97.5 88 30 85/51 (62) 99 10/17/17 14:00 93 10/17/17 12:00 106 10/17/17 11:00 97.4 102 19 98/54 (69) 100 10/17/17 10:41 128 104/54 I/O 10/17/17 10/17/17 10/17/17 10/18/17 10/18/17 10/18/17 07:00 15:00 23:00 07:00 15:00 23:00 Intake Total 1500 ml 1000 ml 360 ml Output Total 400 ml 450 ml 1600 ml Balance 1100 ml 1000 ml -90 ml -1600 ml Intake Oral 250 ml 360 ml IV Total 1250 ml 1000 ml Output Urine Total 400 ml 450 ml 1600 ml # Bowel Movements 0 0 Result Diagram: 10/17/17 0231 10/17/17 0231 Objective Remarks GENERAL: NAD, A&Ox3 HEAD: Normocephalic. NECK: Supple, trachea midline. No lymphadenopathy. EYES: No scleral icterus. No injection or drainage. CARDIOVASCULAR: Irregularly irregular with tachycardia without murmurs, gallops , or rubs. RESPIRATORY: Breath sounds equal bilaterally. No accessory muscle use. GASTROINTESTINAL: Abdomen soft, non-tender, nondistended. MUSCULOSKELETAL: No cyanosis, or edema. SKIN: Warm and dry. NEURO: No focal neurological deficitis. A/P Problem List: (1) Atrial fibrillation with RVR ICD Code: I48.91 - Unspecified atrial fibrillation Status: Acute (2) Pneumonia ICD Code: J18.9 - Pneumonia, unspecified organism Status: Acute (3) Sepsis ICD Code: A41.9 - Sepsis, unspecified organism Status: Acute Assessment and Plan 72-year-old female admitted secondary to A. fib RVR with pneumonia and sepsis Improvements in shortness of breath as tachycardic rhythms have improved. Transfer out of ICU. Continue to monitor on telemetry. Follow CBC and CMP. Atrial fibrillation with rapid ventricular response History of atrial fibrillation Continue esmolol drip Continue Pradaxa Treat pneumonia as this is likely an etiology for the onset Community-acquired pneumonia Continue Levaquin Follow clinically Hypertension Continue baseline treatment Follow blood pressures Adjust treatments as needed Continue lisinopril DVT prophylaxis Pradaxa Pepito Alvarado MD Oct 18, 2017 10:16
[2017-10-18 15:01] LABS: AUTOMATED NEUTROPHIL # 14.3 TH/MM3 (1.8-7.7); BASOPHIL % 0.1 % (0.0-2.0); EOSINOPHIL # 0.1 TH/MM3 (0-0.4); EOSINOPHIL % 0.3 % (0.0-4.0); HEMATOCRIT 41.8 % (35.0-46.0); HEMOGLOBIN 13.9 GM/DL (11.6-15.3); LYMPH % 12.6 % (9.0-44.0); LYMPHOCYTE # 2.3 TH/MM3 (1.0-4.8); MEAN CELL VOLUME 90.7 FL (80.0-100.0); MEAN CORPUSCULAR HEMOGLOBIN 30.1 PG (27.0-34.0); MEAN CORPUSCULAR HGB CONC 33.2 % (32.0-36.0); MEAN PLATELET VOLUME 8.6 FL (7.0-11.0); MONO % 7.6 % (0.0-8.0); MONOCYTE # 1.4 TH/MM3 (0-0.9); NEUT % 79.4 % (16.0-70.0); PLATELET COUNT 231 TH/MM3 (150-450); RED BLOOD COUNT 4.61 MIL/MM3 (4.00-5.30); RED CELL DISTRIBUTION WIDTH 13.5 % (11.6-17.2)
--- NOTE | 2017-10-18 17:01 | ECHRPT ---
Indication: AFIB CONCLUSIONS Normal left ventricular size and wall thickness. The left ventricular systolic function is normal wi th an estimated ejection fraction in the range of 60-65%. Left ventricular diastolic function parameters a re normal. There is trace tricuspid valve regurgitation. The estimated pulmonary arterial pressure is 36.2 mmHg. BP: / HR: Rhythm: MEASUREMENTS (Male / Female) Normal Values Technical Quality: 2D ECHO LV Diastolic Diameter PLAX 3.7 cm 4.2 - 5.9 / 3.9 - 5.3 cm LV Systolic Diameter PLAX 2.6 cm IVS Diastolic Thickness 1.0 cm 0.6 - 1.0 / 0.6 - 0.9 cm LVPW Diastolic Thickness 1.2 cm 0.6 - 1.0 / 0.6 - 0.9 cm LV Relative Wall Thickness 0.6 RV Internal Dim ED PLAX 1.7 cm M-MODE Aortic Root Diameter MM 2.9 cm LA Systolic Diameter MM 4.1 cm LA Ao Ratio MM 1.4 AV Cusp Separation MM 1.8 cm DOPPLER Mitral E Point Velocity 104.0 cm/s Mitral A Point Velocity 25.2 cm/s Mitral E to A Ratio 4.1 LV E' Lateral Velocity 13.9 cm/s Mitral E to LV E' Lateral Ratio 7.5 TR Peak Velocity 256.0 cm/s TR Peak Gradient 26.2 mmHg Right Atrial Pressure 10.0 mmHg Pulmonary Artery Systolic Pressu 36.2 mmHg Right Ventricular Systolic Press 36.2 mmHg FINDINGS LEFT VENTRICLE Normal left ventricular size and wall thickness. The left ventricular systolic function is normal wi th an estimated ejection fraction in the range of 60-65%. Left ventricular diastolic function parameters a re normal. RIGHT VENTRICLE Normal right ventricular size and systolic function. LEFT ATRIUM The left atrial size is normal. RIGHT ATRIUM The right atrial size is normal. ATRIAL SEPTUM Normal atrial septal thickness without atrial level shunting by limited color doppler interrogation. AORTA The aortic root and proximal ascending aorta are not well visualized. MITRAL VALVE Structurally normal mitral valve. No mitral valve stenosis or regurgitation. AORTIC VALVE Trileaflet aortic valve. No aortic valve stenosis or regurgitation. TRICUSPID VALVE Structurally normal tricuspid valve. There is trace tricuspid valve regurgitation. The estimated pulmonary arterial pressure is 36.2 mmHg. PULMONARY VALVE No pulmonary valve regurgitation or stenosis. PERICARDIUM No pericardial effusion. Jose M Romo MD, FACC (Electronically Signed) Final Date:18 October 2017 17:00
--- NOTE | 2017-10-18 17:32 | PD.CARD.PN ---
Subjective Subjective Remarks Breathing better Esmolol drip off Blood pressure better Heart rates better controlled Objective Medications Current Medications Medications (Trade) Dose Ordered Sig/Julian Route Start Time Stop Time Status Last Admin Sodium Chloride 1,000 ml @ 100 mls/hr Q10H IV 10/16/17 20:43 10/18/17 00:27 (NS Flush) 2 ml UNSCH PRN IV FLUSH 10/16/17 20:45 (NS Flush) 2 ml BID IV FLUSH 10/16/17 21:00 10/18/17 09:59 Levofloxacin/ Dextrose 150 ml @ 100 mls/hr Q24H IV 10/17/17 20:00 10/17/17 19:52 (Tylenol) 650 mg Q4H PRN PO 10/16/17 20:45 (Duoneb Neb) 1 ampule Q6HR NEB INH 10/16/17 22:00 10/18/17 09:30 (Duoneb Neb) 1 ampule Q4HR NEB PRN INH 10/16/17 20:45 Esmolol HCl/ Sodium Chloride 250 ml @ 21 mls/hr TITRATE PRN IV 10/16/17 21:00 Future Hold 10/17/17 02:33 (Pradaxa) 150 mg BID PO 10/16/17 21:00 10/18/17 09:00 ([facility]) Patient in critical care unit? Ass... [id number] .XX 10/16/17 23:15 (Chlorhexidine 2% Cloth) 3 pack DAILY@04 TOPICAL 10/17/17 04:00 10/21/17 04:01 10/18/17 04:00 (Chlorhexidine 2% Cloth) 3 pack UNSCH PRN TOPICAL 10/16/17 23:15 10/21/17 23:11 (Cardizem Cd) 180 mg DAILY PO 10/17/17 09:00 10/18/17 09:59 (Prinivil) 10 mg DAILY PO 10/17/17 09:00 10/18/17 09:59 (Lopressor) 25 mg BID PO 10/18/17 21:00 Vital Signs / I&O Vital Signs Date Time Temp Pulse Resp B/P (MAP) Pulse Ox O2 Delivery O2 Flow Rate FiO2 10/18/17 16:14 98.0 87 18 127/67 (87) 98 10/18/17 15:00 97.9 79 28 116/80 (92) 98 10/18/17 15:00 79 10/18/17 12:00 96 10/18/17 11:00 98.0 101 23 114/67 (83) 95 10/18/17 11:00 101 10/18/17 10:00 104 10/18/17 09:31 98 Nasal Cannula 2.00 10/18/17 08:00 93 10/18/17 07:00 97.7 91 16 129/60 (83) 99 10/18/17 07:00 91 10/18/17 06:00 91 10/18/17 06:00 91 10/18/17 05:30 90 10/18/17 05:30 90 10/18/17 05:00 98 10/18/17 05:00 98 10/18/17 04:30 94 10/18/17 04:00 92 10/18/17 04:00 92 10/18/17 03:30 81 10/18/17 03:00 98.7 82 19 97/62 (74) 99 10/18/17 03:00 82 10/18/17 03:00 82 10/18/17 02:31 78 10/18/17 02:01 86 10/18/17 02:00 84 10/18/17 01:30 90 10/18/17 01:07 88 10/18/17 01:01 91 10/18/17 01:00 92 10/18/17 00:30 93 10/18/17 00:00 92 10/17/17 23:30 123 10/17/17 23:00 130 10/17/17 23:00 130 10/17/17 23:00 98.5 130 24 103/56 (72) 97 10/17/17 22:30 141 10/17/17 22:01 145 10/17/17 22:00 139 10/17/17 21:31 96 Nasal Cannula 2.00 10/17/17 20:00 110 10/17/17 19:00 98.0 110 25 101/54 (70) 98 10/17/17 18:00 113 I/O 10/17/18 14/18 10/17/18 10/18/18 10/18/10/18/17 07:00 15:00 23:00 07:00 15:00 23:00 Intake Total 1500 ml 1000 ml 360 ml 480 ml Output Total 400 ml 450 ml 1600 ml 600 ml Balance 1100 ml 1000 ml -90 ml -1600 ml -120 ml Intake Oral 250 ml 360 ml 480 ml IV Total 1250 ml 1000 ml Output Urine Total 400 ml 450 ml 1600 ml 600 ml # Bowel Movements 0 0 0 Physical Exam GENERAL: NAD, AAOx3 SKIN: Warm and dry. HEAD: Atraumatic. Normocephalic. EYES: Pupils equal and round. No scleral icterus. No injection or drainage. ENT: No nasal bleeding or discharge. Mucous membranes pink and moist. NECK: Trachea midline. No JVD. CARDIOVASCULAR: Irregularly irregular RESPIRATORY: No accessory muscle use. Scattered rhonchi bilaterally GASTROINTESTINAL: Abdomen soft, non-tender, nondistended. Hepatic and splenic margins not palpable. MUSCULOSKELETAL: Extremities without clubbing, cyanosis, or edema. No obvious deformities. NEUROLOGICAL: Awake and alert. No obvious cranial nerve deficits. Motor grossly within normal limits. Five out of 5 muscle strength in the arms and legs. Normal speech. PSYCHIATRIC: Appropriate mood and affect; insight and judgment normal. Laboratory Laboratory Tests Test 10/18/17 14:41 White Blood Count 18.0 TH/MM3 Red Blood Count 4.61 MIL/MM3 Hemoglobin 13.9 GM/DL Hematocrit 41.8 % Mean Corpuscular Volume 90.7 FL Mean Corpuscular Hemoglobin 30.1 PG Mean Corpuscular Hemoglobin Concent 33.2 % Red Cell Distribution Width 13.5 % Platelet Count 231 TH/MM3 Mean Platelet Volume 8.6 FL Neutrophils (%) (Auto) 79.4 % Lymphocytes (%) (Auto) 12.6 % Monocytes (%) (Auto) 7.6 % Eosinophils (%) (Auto) 0.3 % Basophils (%) (Auto) 0.1 % Neutrophils # (Auto) 14.3 TH/MM3 Lymphocytes # (Auto) 2.3 TH/MM3 Monocytes # (Auto) 1.4 TH/MM3 Eosinophils # (Auto) 0.1 TH/MM3 Basophils # (Auto) 0.0 TH/MM3 CBC Comment DIFF FINAL Differential Comment Assessment and Plan Problem List: (1) Pneumonia ICD Codes: J18.9 - Pneumonia, unspecified organism Status: Acute (2) Sepsis ICD Codes: A41.9 - Sepsis, unspecified organism Status: Acute (3) Atrial fibrillation with RVR ICD Codes: I48.91 - Unspecified atrial fibrillation Status: Acute Assessment and Plan 1) SOB secondary to PNA Per the primary team 2) Afib with RVR Most likely potentiated by PNA and being out of Metoprolol Heart rates currently controlled, con't on BB/CCB Con't Pradaxa for CHADSVASC = 3 3) EF 60-65% 4) Dr. Rick available PRN over the weekend No further cardiovascular work up at this time Rasta Cai DO Oct 18, 2017 17:32
[2017-10-18] MEDS: LEVOFLOXACIN 750 MG PREMIX INJ 150 ML IV SCH (19:50)
[2017-10-18 20:35] LABS: ALBUMIN 2.9 GM/DL (3.4-5.0); ALKALINE PHOSPHATASE 60 U/L (45-117); ALT (GPT) 19 U/L (10-53); AST (GOT) 12 U/L (15-37); BLOOD UREA NITROGEN 11 MG/DL (7-18); CALCIUM 8.7 MG/DL (8.5-10.1); CHLORIDE 108 MEQ/L (98-107); CREATININE 0.59 MG/DL (0.50-1.00); GLOMERULAR FILTRATION RATE 101 ML/MIN (>89); GLUCOSE,RANDOM 93 MG/DL (74-106); SODIUM (NA) 143 MEQ/L (136-145); TOTAL BILIRUBIN ADULT 0.3 MG/DL (0.2-1.0); TOTAL PROTEIN 7.1 GM/DL (6.4-8.2)
[2017-10-19] VITALS (16 sets, daily range): BP systolic 121–123; BP diastolic 72–93; PULSE 70–107; RESP 16–20; TEMP 97.8–98.7; O2SAT 94–97
[2017-10-19] MEDS: SODIUM CHLOR 0.9% 1000 ML INJ 1,000 ML IV SCH ×2 (01:40→11:16)
[2017-10-19] MEDS: CHLORHEXIDINE GLUCONATE 2 % 1 PACK (2 CLOTHS)(taper/protocol) TOPICAL SCH (04:00)
[2017-10-19] MEDS: RESP: ALBUTEROL 2.5 MG/IPRATROPIUM 0.5 MG NEB (SCH) INH ×2 (04:30→08:36)
[2017-10-19] MEDS ORDERED: POTASSIUM CHLORIDE 10 MEQ CONTROLLED RELEASE TAB PO ONE (08:45)
[2017-10-19] MEDS: SODIUM CHLORIDE 0.9% FLUSH 10 ML FLUSH IV FLUSH SCH (09:00)
[2017-10-19] MEDS: DABIGATRAN ETEXILATE 150 MG CAP PO SCH (09:00)
[2017-10-19] MEDS: METOPROLOL TARTRATE 25 MG TAB PO SCH (09:03)
[2017-10-19] MEDS: LISINOPRIL 10 MG TAB PO SCH (09:03)
[2017-10-19] MEDS: DILTIAZEM-CD 180 MG CAP ER PO SCH (09:03)
[2017-10-19] MEDS ORDERED: METO25TA3 PO (12:05)
[2017-10-19] MEDS ORDERED: LACTTAB8 PO (12:05)
[2017-10-19] MEDS ORDERED: LEVA750T9 PO (12:05)
--- NOTE | 2017-10-19 12:08 | HHI.DS ---
Discharge Summary Admission Date Oct 16, 2017 at 19:42 Discharge Date: Oct 19, 2017 Admitting Diagnosis AFRVR; pneumonia w/ hypoxia; sepsis (1) Atrial fibrillation with RVR ICD Code: I48.91 - Unspecified atrial fibrillation Diagnosis: Principal Status: Acute (2) Pneumonia ICD Code: J18.9 - Pneumonia, unspecified organism Diagnosis: Principal Status: Acute (3) Sepsis ICD Code: A41.9 - Sepsis, unspecified organism Diagnosis: Principal Status: Acute Procedures None Brief History - From Admission 72-year-old female with past medical history significant for atrial fibrillation , anticoagulated on Pradaxa, presents the emergency department for evaluation of shortness of breath. The patient reports a 2 week history of progressively worsening shortness of breath. She also endorses a week of heart palpitations. She states she has had a cough productive of yellow sputum. Denies any chest pain but endorses fevers/chills. The patient reports that she was recently out of her metoprolol for approximately 1 week, finally getting it refilled 2 days ago. No abdominal pain. No nausea/vomiting/diarrhea. No lateralizing signs/ symptoms. CBC/BMP: 10/18/17 1441 10/18/17 1441 Significant Findings Laboratory Tests Test 10/16/17 17:38 10/16/17 17:52 10/16/17 23:00 10/17/17 02:31 White Blood Count 27.4 TH/MM3 (4.0-11.0) 23.9 TH/MM3 (4.0-11.0) Red Blood Count 5.62 MIL/MM3 (4.00-5.30) Hemoglobin 17.2 GM/DL (11.6-15.3) Hematocrit 50.0 % (35.0-46.0) Neutrophils (%) (Auto) 81.0 % (16.0-70.0) 90.3 % (16.0-70.0) Monocytes (%) (Auto) 9.0 % (0.0-8.0) Neutrophils # (Auto) 22.2 TH/MM3 (1.8-7.7) 21.6 TH/MM3 (1.8-7.7) Monocytes # (Auto) 2.5 TH/MM3 (0-0.9) 1.1 TH/MM3 (0-0.9) Random Glucose 123 MG/DL (74-106) 139 MG/DL (74-106) Estimat Glomerular Filtration Rate 79 ML/MIN (>89) 81 ML/MIN (>89) Troponin I LESS THAN 0.02 NG/ML Lymphocytes (%) (Auto) 5.0 % (9.0-44.0) Calcium Level 8.4 MG/DL (8.5-10.1) Test 10/18/17 14:41 White Blood Count 18.0 TH/MM3 (4.0-11.0) Neutrophils (%) (Auto) 79.4 % (16.0-70.0) Neutrophils # (Auto) 14.3 TH/MM3 (1.8-7.7) Monocytes # (Auto) 1.4 TH/MM3 (0-0.9) Albumin 2.9 GM/DL (3.4-5.0) Aspartate Amino Transf (AST/SGOT) 12 U/L (15-37) Potassium Level 3.3 MEQ/L (3.5-5.1) Chloride Level 108 MEQ/L (98-107) Hospital Course Mrs. Cavazos is a 9-year-old female. She has a history of atrial fibrillation and came in the hospital secondary to A. fib RVR. This was found to be related to pneumonia. She met septic criteria at time of admit. Antibiotics (Levaquin) were provided in 3 time patient has had resolution of her pneumonia symptoms as well as resolution of her A. fib RVR. She is back on her baseline treatments. Metoprolol has been decreased due to hypotension with full previous dosing. She is medically stable and cleared for discharge home today. Home health with PT will continue as an outpatient. Pt Condition on Discharge: Stable Discharge Disposition: Disch w/ Home Health Serv Discharge Time: <= 30 minutes Discharge Instructions DIET: Follow Instructions for: Heart Healthy Diet Activities you can perform: Regular-No Restrictions Follow up Referrals: Cardiology - 2 Weeks PCP Follow-up - 2 Weeks New Medications: Lactobacillus Acidophilus (Lactobacillus Acidophilus) 1 Billion Cell Tab 1 TAB PO TIDAC for Nutritional Supplement, #30 TAB 0 Refills Levofloxacin (Levaquin) 750 Mg Tablet 750 MG PO DAILY for Infection, #7 TAB 0 Refills Metoprolol Tartrate (Metoprolol Tartrate) 25 Mg Tab 25 MG PO BID for Blood Pressure Management, #60 TAB Continued Medications: Dabigatran (Pradaxa) 150 Mg Cap 150 MG PO BID for Blood Clot Prevention, #60 CAP 0 Refills Diltiazem ER 24 HR (Diltiazem ER 24 HR) 180 Mg Codi 180 MG PO DAILY, #30 TAB 0 Refills Lisinopril (Lisinopril) 10 Mg Tab 10 MG PO DAILY, #30 TAB 0 Refills Discontinued Medications: Metoprolol Tartrate (Metoprolol Tartrate) 75 Mg Tab 75 MG PO BID, #60 TAB 0 Refills Pepito Alvarado MD Oct 19, 2017 12:08
--- NOTE | 2017-10-19 12:15 | HHI.FF ---
Face to Face Verification Diagnosis: (1) Atrial fibrillation with RVR (2) Pneumonia (3) Sepsis Physical Therapy Order: Evaluate and Treat, Improve ambulation, Strength and gait training I have seen patient Karen Cavazos on 10/19/17. My clinical findings support the need for the requested home health care services because: Ltd mobility - disease progression Patient has SOB Deconditioned w/ increased weakness Limited ability to care for self High risk of falls I certify that my clinical findings support that this patient is homebound because: Unsteady gait/balance Unsafe to leave home unassisted Unable to use public transportation Pepito Alvarado MD Oct 19, 2017 12:15
--- NOTE | 2017-10-19 14:33 | HHI.FF ---
Face to Face Verification Diagnosis: (1) Atrial fibrillation with RVR (2) Pneumonia Physical Therapy Order: Evaluate and Treat, Improve ambulation, Strength and gait training Home Health Nursing Order: Signs/symptoms of disease process Medication education-adverse effect Nursing assessment with vital signs I have seen patient Karen Cavazos on 10/19/17. My clinical findings support the need for the requested home health care services because: Ltd mobility - disease progression Patient has SOB Deconditioned w/ increased weakness Limited ability to care for self High risk of falls I certify that my clinical findings support that this patient is homebound because: Unsteady gait/balance Unsafe to leave home unassisted Unable to use public transportation Pepito Alvarado MD Oct 19, 2017 14:33
== END 2017-10-19 14:22 | disposition home health service (06) | DRG 871 ==
LOC: NEPC 17:28 → NEDA 19:42 → HIME 22:35 → HCIS 10-18 15:47
PROVIDERS: ADMIT Hospitalist; ATTEND Hospitalist
DX: A41.9 Sepsis, unspecified organism (principal); J18.9 Pneumonia, unspecified organism; I48.91 Unspecified atrial fibrillation; E86.0 Dehydration; I10 Essential (primary) hypertension; Z87.891 Personal history of nicotine dependence
CPT/HCPCS: 71046; 76937; 80048; 80053; 82550; 83605; 83735; 83880; 84484; 85025; 87040; 87205; 87641; 93005; 93306; 94640; 94664; 96365; 96375; 96376; J1160; J1956; J7030; J7040